=== PATIENT | male | born 1965 | race Caucasian/White ===

== ENCOUNTER → 2022-12-01 13:04 | Outpatient (CLI) | payer OTHER, SELFPAY ==
--- NOTE | 2022-12-01 | DI.MRI.S_ITS ---
PROCEDURE: MR PELIS WO/W CON INDICATIONS: Elevated prostate specific antigen [PSA] TECHNIQUE: Coronal HASTE, axial T1 FSE with fat saturation, 3-plane nonbreath-hold T2 FSE. After the administration of contrast, dynamic axial, delayed axial and coronal VIBE or 2-D FLASH with fat saturation through the pelvis. Optional diffusion weighted imaging and ADC may be performed. COMPARISON: None. FINDINGS: Image quality: Diffusion weighted and dynamic contrast enhanced images are diagnostic. Prostate: Gland size is 5.9 x 4.0 x 5.4 cm; ellipsoid gland volume is 66 mL. Mild hypertrophy of the transition zone diffusely with relatively good preservation of pseudo capsule and zonal architecture. Only a few discrete BPH nodules are identified. The T2 signal of the transition zone is diffusely heterogeneous. Lesion size(s): Lesion 1: About 1.2 cm in transverse diameter on diffusion imaging. Lesion 2: 0.7 cm in AP diameter on ADC map Lesion 3: 1.0 cm in AP diameter on T2 imaging There are few other areas of sub 5 mm moderate ADC hypointensity and mildly hyperintense on diffusion to the left and right of midline in the transition zone at the apex. Lesion location(s) (sector): Lesion 1: Right posterolateral peripheral zone near the gland apex. Lesion 2: Right anterior transition zone at apex to mid gland Lesion 3: Right lateral transition zone at the mid gland level Lesion description: Lesion 1: Amorphous, non circumscribed area, ill-defined on T2 imaging, best seen on diffusion imaging with mild T2 hypointensity. Lesion 2: Rounded, non circumscribed lesion of indistinct T2 hypointensity Lesion 3: Irregular non circumscribed lesion. T2 weighted imaging (T2WI) morphology score: Lesion 1: Three Lesion 2: Three Lesion 3: Three Diffusion weighted imaging (DWI) morphology score: Lesion 1: Three Lesion 2: Four Lesion 3: Four Dynamic contrast enhancement (DCE): Lesion 1: Absent Lesion 2: Present Lesion 3: Present Lesion PI-RADS score: Lesion 1: PI-RADS three Lesion 2: PI-RADS three Lesion 3: PI-RADS three Genitourinary system: Bladder wall thickness is normal. Distal ureters are non distended. Moderate size left hydrocele. Bowel and peritoneum: No pathologic free pelvic fluid. Inferior colon and small bowel loops are normal in caliber. Nodes and vessels: No pelvic or inguinal adenopathy by size criteria. Iliac vessels are normal in caliber. Soft tissues: No inguinal hernias. Bones: Marrow demonstrates normal overall signal, without lesions to suggest metastases. IMPRESSION: 1. Heterogeneous, mildly enlarged prostate gland with a few areas indeterminate for carcinoma. (PI-RADS three lesions) 2. No adenopathy or suspicious bone lesions. Dictated by: Claudia Washburn M.D. on 12/01/2022 at 16:32 Approved by: Claudia Washburn M.D. on 12/01/2022 at 17:00
== END ==
PROVIDERS: PCP Family Medicine; Referring Provider Urology; Visit Provider Urology
DX: R97.20 Elevated prostate specific antigen [PSA] (principal); N40.0 Benign prostatic hyperplasia without lower urinary tract symptoms; N42.9 Disorder of prostate, unspecified
CPT/HCPCS: 72197; A9579

== ENCOUNTER 2023-04-16 09:49 | Observation (INO) | payer OTHER, SELFPAY ==
[2023-04-16] VITALS (24 sets, daily range): BP systolic 116–152; BP diastolic 66–107; PULSE 40–58; RESP 11–23; TEMP 36.3–36.9; O2SAT 94–100; BMI 23.3
--- NOTE | 2023-04-16 09:56 | DI.RAD.S_ITS ---
PROCEDURE: XR CHEST 1V INDICATIONS: chest pain TECHNIQUE: One view of the chest was acquired. COMPARISON: None. FINDINGS: Surgical changes and devices: None. Lungs and pleura: Lungs are clear. No pleural effusions or pneumothorax. Mediastinum: Mediastinal contours appear normal. Heart size is normal. Bones and chest wall: No suspicious bony lesions. Overlying soft tissues appear unremarkable. IMPRESSION: No acute pulmonary process. Dictated by: Erica Singh M.D. on 04/16/2023 at 10:11 Approved by: Erica Singh M.D. on 04/16/2023 at 10:30
[2023-04-16 10:11] LABS: Add Manual Diff / Slide Review NO; Basophils Absolute Auto 0 /uL (0-100); Basophils Percent Auto 0.6 % (0-2); Eosinophils Absolute Auto 0 /uL (0-450); Eosinophils Percent Auto 0.9 % (2-4); Hematocrit 40.5 % (41-53); Hemoglobin 13.8 g/dL (13.5-17.5); Lymphocytes Absolute Auto 1000 /uL (1100-4500); Lymphocytes Percent Auto 18.8 % (25-40); Mean Corpuscular HGB Conc 34.2 % (30-36); Mean Corpuscular Hemoglobin 28.4 PG (26-34); Mean Corpuscular Volume 83.2 fL (80-100); Monocytes Absolute Auto 400 /uL (0-900); Monocytes Percent Auto 8.2 % (3-14); Neutrophils Absolute Auto 3900 /uL (1500-7000); Neutrophils Percent Auto 71.5 % (50-75); Platelet Count 221 X10^3/uL (150-400); Red Blood Cell Count 4.87 X10^6/uL (4.5-5.9); Red Cell Distribution Width 13.8 % (11.6-14.8); White Blood Cell Count 5.4 X10^3/uL (4.5-11.0)
[2023-04-16 10:14] LABS: INR 1.1 (0.9-1.3)
[2023-04-16] MEDS: ASPIRIN 81 MG CHEW TAB 324 MG PO (10:15)
[2023-04-16 10:17] LABS: PTT Partial Thromboplastin Tim 31 SECONDS (26-36)
[2023-04-16 10:20] LABS: Alanine Aminotransferase 19 IU/L (<50); Albumin 4.4 g/dL (3.5-5.0); Albumin Globulin Ratio 1.3 (1.0-2.8); Alkaline Phosphatase 61 U/L (38-126); Aspartate Aminotransferase 24 IU/L (17-59); BUN Creatinine Ratio 15.1 (6-22); Bilirubin Total 0.6 mg/dL (0.2-1.3); Blood Urea Nitrogen 13 mg/dL (9-20); Calcium 9.6 mg/dL (8.4-10.2); Carbon Dioxide 26 mmol/L (22-32); Chloride 101 mmol/L (98-107); Creatine Kinase 72 U/L (55-170); Estimated Glomerular Filt Rate > 60 mL/min (>60); Globulin 3.3 g/dL (1.7-4.1); Glucose 82 mg/dL (70-100); HEMOLYSIS < 15 (0-50); Lipase 79 U/L (23-300); Potassium 4.2 mmol/L (3.4-5.1); Sodium 132 mmol/L (137-145); Total Protein 7.7 g/dL (6.3-8.2)
[2023-04-16 10:31] LABS: Troponin I < 0.012 ng/mL (0.01-0.034)
--- NOTE | 2023-04-16 10:58 | ED.CHESTPAIN ---
HPI - Chest Pain General Chief Complaint: Chest Pain Stated Complaint: chest pain off and on T-30 Time Seen by Provider: 04/16/23 10:58 Source: patient Mode of arrival: Ambulatory Limitations: no limitations History of Present Illness HPI narrative: This is a 57-year-old male with history of hypertension on lisinopril 5 mg of vitamin D daily, patient comes in with complaint of chest pain that has been intermittent for the past month he states he was having left-sided chest pain was seen at [facility] in [place], was seen in the emergency department was set up to be scheduled for a stress test and echo but was unable to get this performed before he moved here locally. This is about 3 weeks ago. Patient states he was having similar episodes of chest discomfort that went away for about a week or 2 and have reoccurred last several days he describes it as left-sided radiates down his left arm, no shortness of breath, no diaphoresis no nausea or vomiting, no lightheadedness or passing out. He states it does not seem to be associated with exertion or any other factors. 2/10 at its maximum today had resolved and is starting to return. Patient states at his maximum he has been a 4 or 5 with any episode. He denies any swelling in his extremities. He would not been having issues before a month ago. Does relate a fair amount of stress recently. He states medically solely on lisinopril 5 mg and vitamin-D. Remote history of surgical repair of arm fracture in 1975 and prior eye surgery. Allergic to sulfa. No tobacco, has 6 alcoholic drinks weekly, no illicit. Deepti smith as his primary care. Family history patient states mom has hypertension but no known cardiac issues with parents or his brother. No prior stress testing or cardiac workup in the past. Related Data Previous Rx's Medication Instructions Recorded lisinopril 5 mg tablet 5 mg PO DAILY #90 tabs 04/06/23 Allergies Allergy/AdvReac Type Severity Reaction Status Date / Time Sulfa (Sulfonamide AdvReac Mild Verified 12/14/22 15:23 Antibiotics) Review of Systems Review of Systems ROS Unobtainable: All systems reviewed & are unremarkable except as noted in HPI and below Patient History Medical History Chicken pox (~1969) Colon polyps (~2017) Fractures (~1975) Hemorrhoid (~1989) History of elevated PSA (~2019) Melanoma (~2019) Osteopenia (~2004) Osteoporosis Rheumatoid arthritis (~2007) Surgical History Anesthesia History of surgery on arm (~1975) Family History Father Cancer Melanoma Mother Diabetes mellitus Hypertension Hyperlipidemia Grandfather Alcoholism Grandfather Cancer Grandmother Alzheimer's disease Social History household members: spouse Smoking Status: Never smoker alcohol intake: current Smoking Status: Never smoker alcohol intake frequency: 0-2 drinks per day Substance Use Type: does not use Exam Narrative Exam Narrative: GENERAL: Alert and oriented x three, thin male in mild distress. HEENT: Head normocephalic, atraumatic, EOMI, pupils reactive, face symmetric, moist mucous membranes NECK: Supple, full range of motion CARDIOVASCULAR: Regular rate and rhythm without murmurs, rubs or gallops. No JVD. No swelling bilateral lower extremities. No reproducible chest pain. No rash or skin changes. RESPIRATORY: Breath sounds equal bilaterally, no wheezes rales or rhonchi. No tachypnea or accessory muscle use. ABDOMEN: Soft, nontender. Normoactive bowel sounds all 4 quadrants. No guarding or rebound, rigidity, no mass : No CVA tenderness EXTREMITIES: Normal range of motion, no clubbing or edema. Neurovascularly intact NEUROLOGICAL: Cranial nerves II through XII grossly intact. Moving all extremities SKIN: Warm, dry, no petechiae, no rashes or lesions. Initial Vital Signs Initial Vital Signs: Vital Signs Temperature 98.5 F 04/16/23 09:50 Pulse Rate 52 L 04/16/23 09:50 Respiratory Rate 16 04/16/23 09:50 Blood Pressure 131/90 04/16/23 09:50 Pulse Oximetry 99 04/16/23 09:50 Oxygen Delivery Method Room Air 04/16/23 09:50 Scores HEART Score Heart Score history: Highly Suspicious Heart Score EKG: Normal Heart Score Age: 45-64 years old Heart Score risk factors: 1-2 risk factors Heart Score troponin: < or = to normal limit Heart Score Total: 4 Course Orders Ordered: Acetaminophen (Acetaminophen 325 Mg Tablet) 650 mg PO Q6H PRN PRN Reason: Fever/Mild Pain (1-3) Aspirin (Aspirin Ec 81 Mg Tablet) 81 mg PO DAILY [facility] Atorvastatin Calcium (Atorvastatin 20 Mg Tablet) 40 mg PO BEDTIME [facility] Last Admin: 04/16/23 20:48 Dose: Not Given Documented By: MS Naloxone HCl (Naloxone 0.4 Mg/Ml Vial) 0.2 mg IV Q2MIN PRN PRN Reason: Opiate Reversal Nitroglycerin (Nitroglycerin 0.4 Mg Sl Tab) 0.4 mg SL [id number] PRN PRN Reason: Chest Pain Last Admin: 04/16/23 11:36 Dose: 0.4 mg Documented By: AT Ondansetron HCl (Ondansetron 4 Mg Odt) 4 mg PO Q8HR PRN PRN Reason: Nausea And Vomiting Sodium Chloride (Sodium Chloride 0.9% Flush) 10 ml IV BID [facility] Last Admin: 04/17/23 04:15 Dose: 10 ml Documented By: MS Discontinued Medications Aspirin (Aspirin 81 Mg Chew Tab) 324 mg PO NOW ONE Stop: 04/16/23 09:57 Last Admin: 04/16/23 10:15 Dose: 324 mg Documented By: AT Vital Signs Vital signs: Vital Signs - 8 hr 04/16/23 09:50 04/16/23 09:55 04/16/23 10:00 Temperature 98.5 F Pulse Rate 52 L 58 L 54 L Respiratory Rate 16 18 20 Blood Pressure 131/90 Pulse Oximetry 99 100 100 Oxygen Delivery Method Room Air Room Air 04/16/23 10:01 04/16/23 10:01 04/16/23 10:30 Temperature Pulse Rate 54 L 50 L Respiratory Rate 17 12 Blood Pressure 141/82 H Pulse Oximetry 100 98 Oxygen Delivery Method 04/16/23 10:33 04/16/23 10:33 04/16/23 11:00 Temperature Pulse Rate 50 L 46 L Respiratory Rate 15 11 L Blood Pressure 129/87 Pulse Oximetry 98 98 Oxygen Delivery Method Room Air 04/16/23 11:30 04/16/23 11:30 04/16/23 11:40 Temperature Pulse Rate 48 L 54 L Respiratory Rate 14 12 Blood Pressure 148/88 H Pulse Oximetry 98 97 Oxygen Delivery Method Room Air 04/16/23 11:40 04/16/23 11:45 04/16/23 11:45 Temperature Pulse Rate 53 L Respiratory Rate 21 Blood Pressure 131/78 122/66 Pulse Oximetry 94 Oxygen Delivery Method 04/16/23 11:50 04/16/23 11:50 04/16/23 11:55 Temperature Pulse Rate 51 L 47 L Respiratory Rate 11 L 14 Blood Pressure 119/70 Pulse Oximetry 95 96 Oxygen Delivery Method 04/16/23 11:55 04/16/23 12:00 04/16/23 12:00 Temperature Pulse Rate 47 L Respiratory Rate 15 Blood Pressure 116/70 117/73 Pulse Oximetry 96 Oxygen Delivery Method Room Air 04/16/23 12:06 04/16/23 12:06 04/16/23 12:30 Temperature Pulse Rate 46 L Respiratory Rate 23 Blood Pressure 131/71 125/80 Pulse Oximetry 97 Oxygen Delivery Method 04/16/23 12:30 Temperature Pulse Rate 43 L Respiratory Rate 15 Blood Pressure Pulse Oximetry 100 Oxygen Delivery Method MDM - Chest Pain Lab Data 04/16/23 10:00 04/16/23 10:00 Labs: Lab Results 04/16/23 04/16/23 04/16/23 Range/Units 10:00 10:00 10:00 WBC 5.4 (4.5-11.0) X10^3/uL RBC 4.87 (4.5-5.9) X10^6/uL Hgb 13.8 (13.5-17.5) g/dL Hct 40.5 L (41-53) % MCV 83.2 (80-100) fL MCH 28.4 (26-34) PG MCHC 34.2 (30-36) % RDW 13.8 (11.6-14.8) % Plt Count 221 (150-400) X10^3/uL Neut % (Auto) 71.5 (50-75) % Lymph % (Auto) 18.8 L (25-40) % Bertie % (Auto) 8.2 (3-14) % Eos % (Auto) 0.9 L (2-4) % Baso % (Auto) 0.6 (0-2) % Neut # (Auto) 3900 (8098-7692) /uL Lymph # (Auto) 1000 L (8580-7331) /uL Bertie # (Auto) 400 (0-900) /uL Eos # (Auto) 0 (0-450) /uL Baso # (Auto) 0 (0-100) /uL PT 13.0 H (10.1-12.7) SECONDS INR 1.1 (0.9-1.3) APTT 31 (26-36) SECONDS D-Dimer (<500) ng/ml Sodium 132 L (137-145) mmol/L Potassium 4.2 (3.4-5.1) mmol/L Chloride 101 (98-107) mmol/L Carbon Dioxide 26 (22-32) mmol/L BUN 13 (9-20) mg/dL Creatinine 0.86 (0.66-1.25) mg/dL Estimated GFR > 60 (>60) mL/min BUN/Creatinine Ratio 15.1 (6-22) Glucose 82 (70-100) mg/dL Calcium 9.6 (8.4-10.2) mg/dL Magnesium 2.0 (1.6-2.3) mg/dL Total Bilirubin 0.6 (0.2-1.3) mg/dL AST 24 (17-59) IU/L ALT 19 (<50) IU/L Alkaline Phosphatase 61 (38-126) U/L Total Creatine Kinase 72 (55-170) U/L Troponin I < 0.012 (0.01-0.034) ng/mL Total Protein 7.7 (6.3-8.2) g/dL Albumin 4.4 (3.5-5.0) g/dL Globulin 3.3 (1.7-4.1) g/dL Albumin/Globulin Ratio 1.3 (1.0-2.8) Lipase 79 (23-300) U/L 04/16/23 04/16/23 Range/Units 10:00 12:05 WBC (4.5-11.0) X10^3/uL RBC (4.5-5.9) X10^6/uL Hgb (13.5-17.5) g/dL Hct (41-53) % MCV (80-100) fL MCH (26-34) PG MCHC (30-36) % RDW (11.6-14.8) % Plt Count (150-400) X10^3/uL Neut % (Auto) (50-75) % Lymph % (Auto) (25-40) % Bertie % (Auto) (3-14) % Eos % (Auto) (2-4) % Baso % (Auto) (0-2) % Neut # (Auto) (5964-3163) /uL Lymph # (Auto) (3484-6333) /uL Bertie # (Auto) (0-900) /uL Eos # (Auto) (0-450) /uL Baso # (Auto) (0-100) /uL PT (10.1-12.7) SECONDS INR (0.9-1.3) APTT (26-36) SECONDS D-Dimer 365 (<500) ng/ml Sodium (137-145) mmol/L Potassium (3.4-5.1) mmol/L Chloride (98-107) mmol/L Carbon Dioxide (22-32) mmol/L BUN (9-20) mg/dL Creatinine (0.66-1.25) mg/dL Estimated GFR (>60) mL/min BUN/Creatinine Ratio (6-22) Glucose (70-100) mg/dL Calcium (8.4-10.2) mg/dL Magnesium (1.6-2.3) mg/dL Total Bilirubin (0.2-1.3) mg/dL AST (17-59) IU/L ALT (<50) IU/L Alkaline Phosphatase (38-126) U/L Total Creatine Kinase (55-170) U/L Troponin I < 0.012 (0.01-0.034) ng/mL Total Protein (6.3-8.2) g/dL Albumin (3.5-5.0) g/dL Globulin (1.7-4.1) g/dL Albumin/Globulin Ratio (1.0-2.8) Lipase (23-300) U/L Imaging Data Chest x-ray: Radiologist's Impression: [address] [id number] ReportSigned Patient: Dmitri Cosme [facility]#: [id number]: 1965Acct:[id number]/Sex: 57 / MDate of Service: 04/16/23Loc: EDAccession Number: [id number] ?? Procedure: XR chest 1V Ordering Provider: Elisabeth Willoughby D.O. PROCEDURE:? XR CHEST 1V ? INDICATIONS:? chest pain ? TECHNIQUE:? One view of the chest was acquired.? ? COMPARISON:? None. ? FINDINGS:? ? Surgical changes and devices:? None.? ? Lungs and pleura:? Lungs are clear.? No pleural effusions or pneumothorax.? ? Mediastinum:? Mediastinal contours appear normal.? Heart size is normal.? ? Bones and chest wall:? No suspicious bony lesions.? Overlying soft tissues appear unremarkable.? ? IMPRESSION:? No acute pulmonary process. ? ? Dictated by: Erica Singh M.D. on 04/16/2023 at 10:11 ? ? Approved by: Erica Singh M.D. on 04/16/2023 at 10:30?? ECG Data Attestation: I personally reviewed and interpreted this ECG as follows: Interpretation: Sinus bradycardia with sinus arrhythmia, rate of 51 SD 172 QRS 86 and QTC 384. No acute ST elevation or depression appreciated. Sinus arrhythmia. No priors for comparison. EKG2. Sinus bradycardia, rate of 41 SD 172 QRS of 96 QTC 399. Patient's has slight change in V1 V2 but looks like probably some motion artifact. No other acute changes appreciated. MDM Narrative Medical decision making narrative: This is a 57-year-old male with history of hypertension, patient has had intermittent chest pain on and off for a month but had a period about 2 weeks without any symptoms. He does have a history of hypertension, he is not on any daily anticoagulation, initial workup with CBC, CMP, coags, LFTs and troponin is negative, chest x-ray shows no acute change. EKG does not show any clear changes patient is bradycardic with sinus arrhythmia but no ST changes noted no priors for comparison patient was seen in about a month ago was supposed to get stress testing but was unable to complete this. Patient's chest pain had recurred while in the department received aspirin, nitro Repeat troponin and EKG show no acute change. Dr. Vogel, hospitalist case was discussed he accepts for observation there is potential chance patient maybe able to get stress test today if not will be tomorrow. Discharge Plan Departure Patient Disposition: Admitted as Observation Clinical Impression: Chest pain Admit Date/Time: 04/16/23 13:26 Admit Provider: Arie Vogel
[2023-04-16] MEDS: NITROGLYCERIN 0.4 MG SL TAB SL (11:36)
[2023-04-16 12:13] LABS: D Dimer 365 ng/ml (<500)
[2023-04-16 12:32] LABS: Troponin I < 0.012 ng/mL (0.01-0.034)
--- NOTE | 2023-04-16 15:59 | PM.HP.1 ---
History of Present Illness History of Present Illness Date Patient Seen: 04/16/23 Time Patient Seen: 15:59 Chief complaint: chest pain off and on T-30 Narrative: This is a 57 year old male with PMH of HTN who presented to the ER today with an episode of chest pain. He states the pain has been going on intermittently over the past month. They're in the process of relocating from [place], and initially went to the ER there and had a reassuring evaluation so was recommended for outpatient stress testing, which did not get done. Chest pain is described as a moderate pressure, with radiation and numbness into his left arm. It is intermittent, not really associated with exertion or diet, and can happen at any time. He denies fever, diaphoresis, palpitation, orthopnea, or lower extremity edema. He has not noticed any noticeable drop in his exercise tolerance and can walk a few miles without notable dyspnea. No Fam Hx of CAD in mother or father. Non-smoker. 6 drinks per week. [facility] Medical History Chicken pox (~1970) Colon polyps (~2017) Fractures (~1975) Hemorrhoid (~1989) History of elevated PSA (~2019) Melanoma (~2019) Osteopenia (~2004) Osteoporosis Rheumatoid arthritis (~2007) Surgical History Anesthesia History of surgery on arm (~1975) Family History Father Cancer Melanoma Mother Diabetes mellitus Hypertension Hyperlipidemia Grandfather Alcoholism Grandfather Cancer Grandmother Alzheimer's disease Social History Smoking Status: Never smoker Meds Home Medications and Allergies Home Medications Medication Instructions Recorded Confirmed Type lisinopril 5 mg tablet 5 mg PO DAILY #90 tabs 04/06/23 04/16/23 Rx Allergies Allergy/AdvReac Type Severity Reaction Status Date / Time Sulfa (Sulfonamide AdvReac Mild Verified 12/14/22 15:23 Antibiotics) Review of Systems Review of Systems Narrative: All other systems reviewed with the patient and are negative unless otherwise stated. Exam Vital Signs (past 8 hours): - 04/16/23 09:50 04/16/23 09:55 04/16/23 10:00 Temperature 98.5 F Pulse Rate 52 L 58 L 54 L Respiratory Rate 16 18 20 Blood Pressure 131/90 Pulse Oximetry 99 100 100 Oxygen Delivery Method Room Air Room Air 04/16/23 10:01 04/16/23 10:01 04/16/23 10:30 Temperature Pulse Rate 54 L 50 L Respiratory Rate 17 12 Blood Pressure 141/82 H Pulse Oximetry 100 98 Oxygen Delivery Method 04/16/23 10:33 04/16/23 10:33 04/16/23 11:00 Temperature Pulse Rate 50 L 46 L Respiratory Rate 15 11 L Blood Pressure 129/87 Pulse Oximetry 98 98 Oxygen Delivery Method Room Air 04/16/23 11:30 04/16/23 11:30 04/16/23 11:40 Temperature Pulse Rate 48 L 54 L Respiratory Rate 14 12 Blood Pressure 148/88 H Pulse Oximetry 98 97 Oxygen Delivery Method Room Air 04/16/23 11:40 04/16/23 11:45 04/16/23 11:45 Temperature Pulse Rate 53 L Respiratory Rate 21 Blood Pressure 131/78 122/66 Pulse Oximetry 94 Oxygen Delivery Method 04/16/23 11:50 04/16/23 11:50 04/16/23 11:55 Temperature Pulse Rate 51 L 47 L Respiratory Rate 11 L 14 Blood Pressure 119/70 Pulse Oximetry 95 96 Oxygen Delivery Method 04/16/23 11:55 04/16/23 12:00 04/16/23 12:00 Temperature Pulse Rate 47 L Respiratory Rate 15 Blood Pressure 116/70 117/73 Pulse Oximetry 96 Oxygen Delivery Method Room Air 04/16/23 12:06 04/16/23 12:06 04/16/23 12:30 Temperature Pulse Rate 46 L Respiratory Rate 23 Blood Pressure 131/71 125/80 Pulse Oximetry 97 Oxygen Delivery Method 04/16/23 12:30 04/16/23 13:00 04/16/23 13:00 Temperature Pulse Rate 43 L 49 L Respiratory Rate 15 14 Blood Pressure 128/91 H Pulse Oximetry 100 99 Oxygen Delivery Method 04/16/23 13:30 04/16/23 13:31 04/16/23 13:31 Temperature Pulse Rate 47 L 46 L Respiratory Rate 17 12 Blood Pressure 145/83 H Pulse Oximetry 100 100 Oxygen Delivery Method 04/16/23 14:00 04/16/23 14:00 04/16/23 14:30 Temperature Pulse Rate 53 L Respiratory Rate 16 Blood Pressure 149/94 H 136/107 H Pulse Oximetry 100 Oxygen Delivery Method 04/16/23 14:30 04/16/23 15:00 04/16/23 15:00 Temperature Pulse Rate 48 L 47 L Respiratory Rate 22 14 Blood Pressure 134/78 Pulse Oximetry 100 99 Oxygen Delivery Method 04/16/23 15:30 04/16/23 15:30 Temperature Pulse Rate 47 L Respiratory Rate 20 Blood Pressure 152/85 H Pulse Oximetry 99 Oxygen Delivery Method Oxygen Delivery Method Room Air Narrative Exam Narrative: General:? Patient is well developed and well nourished, in no distress at this time. HEENT:? Normocephalic, atraumatic, extraocular muscles intact, oral pharynx is clear and mucous membranes are moist. Neck: supple and symmetric, trachea is midline, no cervical adenopathy. Negative for JVD Chest:? Normal AP diameter and contour without kyphoscoliosis, no tachypnea, equal chest rise bilaterally. Lungs:? CTA b/l no wheezing rhonchi or rales. Cardio:?RRR no m/r/g. Abdomen: S NT ND. No CVA tenderness. Musculoskeletal:? Muscle strength and tone are equal within normal limits, no deformity. Extremities: No edema or joint effusions. No cyanosis or clubbing. Skin:? Pale,? Warm to touch,dry and intact without rashes, ulcerations or petechiae.? Neuro:? Alert and orientated x3,? sensation to touch intact in all extremities, no gross deficits noted of cranial nerves. Psych:? Patient has a well-kept appearance, appropriate affect, mental status attitude thought context and judgment are appropriate for age. Objective ECG Impression: Sinus bradycardia without acute ischemia as interpreted by me Labs 04/16/23 10:00 04/16/23 10:00 Labs: Laboratory Results - last 24 hr 04/16/23 04/16/23 04/16/23 10:00 10:00 10:00 WBC 5.4 RBC 4.87 Hgb 13.8 Hct 40.5 L MCV 83.2 MCH 28.4 MCHC 34.2 RDW 13.8 Plt Count 221 Neut % (Auto) 71.5 Lymph % (Auto) 18.8 L [place] % (Auto) 8.2 Eos % (Auto) 0.9 L Baso % (Auto) 0.6 Neut # (Auto) 3900 Lymph # (Auto) 1000 L [place] # (Auto) 400 Eos # (Auto) 0 Baso # (Auto) 0 PT 13.0 H INR 1.1 APTT 31 D-Dimer Sodium 132 L Potassium 4.2 Chloride 101 Carbon Dioxide 26 BUN 13 Creatinine 0.86 Estimated GFR > 60 BUN/Creatinine Ratio 15.1 Glucose 82 Calcium 9.6 Magnesium 2.0 Total Bilirubin 0.6 AST 24 ALT 19 Alkaline Phosphatase 61 Total Creatine Kinase 72 Troponin I < 0.012 Total Protein 7.7 Albumin 4.4 Globulin 3.3 Albumin/Globulin Ratio 1.3 Lipase 79 04/16/23 04/16/23 10:00 12:05 WBC RBC Hgb Hct MCV MCH MCHC RDW Plt Count Neut % (Auto) Lymph % (Auto) [place] % (Auto) Eos % (Auto) Baso % (Auto) Neut # (Auto) Lymph # (Auto) [place] # (Auto) Eos # (Auto) Baso # (Auto) PT INR APTT D-Dimer 365 Sodium Potassium Chloride Carbon Dioxide BUN Creatinine Estimated GFR BUN/Creatinine Ratio Glucose Calcium Magnesium Total Bilirubin AST ALT Alkaline Phosphatase Total Creatine Kinase Troponin I < 0.012 Total Protein Albumin Globulin Albumin/Globulin Ratio Lipase Assessment & Plan Assessment & Plan narrative: 1. Chest pain - HEART score 4, intermediate risk for cardiac events. - continue telemetry, proceed with non-nuclear treadmill for further risk stratification tomorrow. - will order echocardiogram as well. - check 8 hr troponin, though low likelihood of ACS suspected given presentation. EKG is reassuring and CXR is unremarkable. 2. HTN - mildly elevated BPs on admission, continue home lisinopril and may need dose adjustment. 3. Asympatomatic hyponatremia - no further follow up needed at this time. I have utilized all available immediate resources to obtain, update, or review the patient's current medications. Code: Full, surrogate is patient's spouse Additional history was obtained via discussion with the ER provider. Discussed plan of care with patient and spouse at bedside. I have reviewed patient's EKG, imaging, lab evaluation and documentation personally with appropriate lab and risk stratification ordered as discussed above. Dispo: Admitted observation, if stress testing and echo is unremarkable can discharge home after.
--- NOTE | 2023-04-16 16:04 | DI.ECHO.S_ITS ---
[place] [facility]---------+ [facility] +---------+ : : [address] : : : : [id number] : : : : Phone: [phone]+ Echocardiogram Report + + :Name: MONSE PAPPAS Study Date: 04/17/2023 Height: 71 in : :[facility] ReadingLocation: Weight: 167 lb : : Gender: Male BSA: 2.0 m2 : :: 1965 Age: 57 yrs BP: 119/70 mmHg: :Reason For Study: CHEST PAIN : :Ordering Physician: KAE, : :LAYLA GUZMÁN Performed By: Mary Grace Brandt : :Referring: LAYLA PAL : + + Interpretation Summary The ejection fraction is estimated to be 55-60%. Diastolic parameters suggest probable normal left ventricular diastolic function and normal filling pressures. The right ventricle is normal in size and function. Injection of contrast documented a small interatrial shunt. There is mild mitral regurgitation. There is mild tricuspid regurgitation. The right ventricular systolic pressure is estimated to be at least 22 mmHg based on an estimated right atrial pressure of 3 mm Hg. Procedure: A two-dimensional transthoracic echocardiogram with color flow and Doppler was performed. The study quality was technically adequate. There is no prior echocardiogram noted for this patient. The patient was in sinus rhythm with heart rates between 42-75 bpm during the exam. Left Ventricle: The left ventricle is normal in size and wall thickness. The ejection fraction is estimated to be 55-60%. Diastolic parameters suggest probable normal left ventricular diastolic function and normal filling pressures. Right Ventricle: The right ventricle is normal in size and function. Atria: The left atrial size is normal. Right atrial size is normal. Injection of contrast documented an interatrial shunt. Mitral Valve: The mitral valve leaflets appear mildly thickened, but open well. There is mild mitral regurgitation. Aortic Valve: The aortic valve is trileaflet. The aortic valve opens well. There is no aortic valve stenosis. No aortic regurgitation is present. Tricuspid Valve: The tricuspid valve is normal. There is mild tricuspid regurgitation. The right ventricular systolic pressure is estimated to be at least 22 mmHg based on an estimated right atrial pressure of 3 mm Hg. Pulmonic Valve: The pulmonic valve is not well visualized. There is mild pulmonic regurgitation. Great Vessels: The aortic root is normal size. The dimensions of the ascending aorta are normal. The IVC is of normal diameter and collapses greater than 50% with a sniff. This suggests a low right atrial pressure of 3 mm Hg. Pericardium/ Pleura There is no pericardial effusion. There is no pleural effusion. MMode/2D Measurements & Calculations LVIDd: 5.4 cm LVOT diam: 2.2 cm LVIDs: 3.7 cm Ao root diam: 3.4 cm FS: 31.7 % asc Aorta Diam: 3.4 cm IVSd: 0.71 cm Ao Arch Diam (Prox Trans): 2.9 cm LVPWd: 0.77 cm LV juárez. diameter/BSA (cm/m^2): 2.8 LV sys. diameter/BSA (cm/m^2): 1.9 LA A2 area: 17.8 cm2 RA long axis: 5.5 cm LA A4 area: 13.7 cm2 RA area: 17.9 cm2 LA length (vol): 4.7 cm RA vol: 49.6 ml LA vol: 44.2 ml RA : 25.4 ml/m2 LA vol index: 22.6 ml/m2 IVC diam: 1.8 cm RVD1 (basal): 3.7 cm RVD2 (mid): 3.2 cm TAPSE: 2.2 cm Doppler Measurements & Calculations Ao V2 max: 125.3 cm/sec LVOT Max Chaz: 102.1 cm/sec Ao V2 mean: 81.3 cm/sec LV V1 max P.2 mmHg Ao max P.3 mmHg LV V1 VTI: 23.6 cm Ao mean P.0 mmHg GOLD(I,D): 3.1 cm2 Ao V2 VTI: 27.9 cm GOLD(V,D): 3.0 cm2 sev ratio: 0.85 GOLD indexed to BSA (cm^2/m^2): 1.6 MV E max chaz: 75.8 cm/sec TR max chaz: 219.4 cm/sec MV A max chaz: 46.2 cm/sec TR max P.2 mmHg MV E/A: 1.6 PA V2 max: 78.0 cm/sec Med Peak E' Chaz: 9.1 cm/sec PA V2 mean: 56.8 cm/sec E/E' med: 8.3 PA mean P.4 mmHg Lat Peak E' Chaz: 10.7 cm/sec PA pr(Accel): 10.5 mmHg E/E' lat: 7.1 E/e' average: 7.7 MV dec time: 0.24 sec SV(LVOT): 86.2 ml Reading Physician:11:33 AM
--- NOTE | 2023-04-16 16:12 | PC.NURSE ---
Pt arrived from ED at 1545. He is A&OX4. VSS, afebrile on RA. Sinus danya at 46, he states is normal HR for him. He denies dizziness, SOB, Chest pain upon arrival. MD at bedside evaluating patient. Plan for echo, NPO after midnight, no caffiene and treadmill stress test in a.m.
[2023-04-16 18:28] LABS: Cholesterol 242 mg/dL (140-199); HDL Cholesterol 62 mg/dL (40-60); LDL Cholesterol Calculated 163 mg/dL (<100); Triglycerides 85 mg/dL (35-150)
[2023-04-16 18:37] LABS: Troponin I < 0.012 ng/mL (0.01-0.034)
[2023-04-16 18:57] LABS: TSH w/ Reflex to FT4 0.95 uIU/mL (0.47-4.68)
[2023-04-17 01:33] VITALS: BP 122/77; PULSE 50; RESP 18; TEMP 36.5; O2SAT 98
[2023-04-17] MEDS: SODIUM CHLORIDE 0.9% FLUSH 10 ML IV ×2 (04:15→08:15)
[2023-04-17 05:00] VITALS: BP 119/70; PULSE 50; RESP 18; TEMP 36.5; O2SAT 98
[2023-04-17 07:00] VITALS: O2SAT 99
[2023-04-17 07:31] VITALS: BP 124/82; PULSE 50; RESP 18; TEMP 36.6; O2SAT 99
[2023-04-17] MEDS: ASPIRIN EC 81 MG TABLET PO (08:15)
--- NOTE | 2023-04-17 10:34 | CM.DANOTE ---
DCP: Chart review for case, met with patient at bedside, they agree to case management assessment. Completed DCP assessment based on information available. Patient is a 57 year old admitted for chest pain, stress test complete. PCP: Ashleigh Mendoza Payer: Dariusz Sommers DME: None DCP: Home with supportive who is currently at bedside Domenica Steven RN, CM Discharge Planning/Care Management CM Discharge Assessment Start: 04/17/23 10:32 Freq: Status: Active Protocol: Document 04/17/23 10:33 BQ (Rec: 04/17/23 10:34 BQ [id number]) Discharge Planning Assessment Assigned Toll Gate Keeper Domenica Steven RN, CM Advance Directives? No History Provided By Patient Has Patient been admitted in last 30 No days? Prior Living Arrangements House Household Members spouse Type of transporation used prior to Drives own vehicle admit Independent with ADL's Yes Is patient alert and oriented? Yes Barriers to Discharge No Discharge Plan Home Referrals Initiated None needed Whiteboard Updated in Patient Room with Yes name and ext. # of Toll Gate Keeper Review Status In Process Next Review Type Continued Stay Review
[2023-04-17 11:00] VITALS: BP 114/71; PULSE 65; RESP 18; TEMP 36.8; O2SAT 97; O2SAT 99
--- NOTE | 2023-04-17 14:04 | P.DS_ITS ---
History of Present Illness History of Present Illness Date Patient Seen: 04/17/23 Time Patient Seen: 14:04 Chief complaint: chest pain off and on T-30 Narrative: This is a 57 year old male with PMH of HTN who presented to the ER today with an episode of chest pain. He states the pain has been going on intermittently over the past month. They're in the process of relocating from [place], and initially went to the ER there and had a reassuring evaluation so was recommended for outpatient stress testing, which did not get done. Chest pain is described as a moderate pressure, with radiation and numbness into his left arm. It is intermittent, not really associated with exertion or diet, and can happen at any time. He denies fever, diaphoresis, palpitation, orthopnea, or lower extremity edema. He has not noticed any noticeable drop in his exercise tolerance and can walk a few miles without notable dyspnea. No Fam Hx of CAD in mother or father. Non-smoker. 6 drinks per week. Discharge Providers Provider Date of admission: 04/16/23 13:26 Discharge Date: 04/17/23 Primary care physician: Ashleigh Mendoza DO Discharge provider: Arie Vogel DO Summary Hospital Course Discharge Diagnosis: 1. Chest pain 2. HTN 3. Asympatomatic hyponatremia Hospital Course: This is a 57 year old male with a PMH of HTN admitted for further risk stratification for chest pain. He underwent echocardiogram which showed only mild valvular regurg, but no wall motion abnormalities and no systolic or diast olic dysfunction. His BP was initially elevated but improved on his home medications. Non-nuclear stress testing was deemed low risk, with no ST changes during peak exercise. He was discharged to follow up with primary care. His LDL was elevated, and ASCVD risk was calculated at 9.9%. He had previously been on statin, and would prefer to discuss statin medication with primary care provider in the near future and continue with lifestyle interventions at this time rather than statin administration. Time Spent with Patient Time spent: Less than 30 minutes Exam Vital Signs (past 8 hours): - 04/17/23 07:31 04/17/23 07:00 04/17/23 11:00 Temperature 97.8 F 98.3 F Pulse Rate 50 L 65 Respiratory Rate 18 18 Blood Pressure 124/82 114/71 Pulse Oximetry 99 99 97 Oxygen Delivery Method Room Air Oxygen Flow Rate 0 0 04/17/23 11:00 Temperature Pulse Rate Respiratory Rate Blood Pressure Pulse Oximetry 99 Oxygen Delivery Method Room Air Oxygen Flow Rate Oxygen Delivery Method Room Air Oxygen Flow Rate 0 Narrative Exam Narrative: General:? Patient is well developed and well nourished, in no distress at this time. Chest:? Normal AP diameter and contour without kyphoscoliosis, no tachypnea, equal chest rise bilaterally. Extremities: No edema or joint effusions. No cyanosis or clubbing. Skin:? Pale,? Warm to touch,dry and intact without rashes, ulcerations or petechiae.? Neuro:? Alert and orientated x3, no gross deficits noted of cranial nerves. Psych:? Patient has a well-kept appearance, appropriate affect, mental status attitude thought context and judgment are appropriate for age. Objective Labs 04/16/23 10:00 04/16/23 10:00 Labs: Laboratory Results - last 24 hr 04/16/23 04/16/23 04/16/23 17:57 17:57 17:57 Troponin I < 0.012 Triglycerides 85 Cholesterol 242 H LDL Cholesterol, Calc 163 H HDL Cholesterol 62 H TSH 0.95 PFSH Medical History Chicken pox (~1970) Colon polyps (~2018) Fractures (~1975) Hemorrhoid (~1989) History of elevated PSA (~2019) Melanoma (~2019) Osteopenia (~2005) Osteoporosis Rheumatoid arthritis (~2007) Surgical History Anesthesia History of surgery on arm (~1975) Family History Father Cancer Melanoma Mother Diabetes mellitus Hypertension Hyperlipidemia Grandfather Alcoholism Grandfather Cancer Grandmother Alzheimer's disease Social History household members: spouse Smoking Status: Never smoker alcohol intake: current Discharge Plan Discharge Plan Patient Disposition: Home Provider Discharge Comment: You were admitted to the hospital with chest pain. Echocardiogram and stress testing were reassuring. No medication changes are recommended at this time. Consider further discussion with PCP regarding heart attack and stroke risk reduction with statin therapy, one option may be to persue coronary artery calcium scoring. Discharge orders & Medications Prescriptions: Continued lisinopril 5 mg tablet 5 mg PO DAILY Qty: 90 0RF Follow up/Referrals: Ashleigh Mendoza DO [Primary Care Provider] - Diet/Activity/Treatments Diet: Diet as Tolerated and Regular Activity: As tolerated, no restrictions. Visit Report/Discharge Packet Stand Alone Forms: Patient Portal/API, Stroke Signs & Symptoms Discharge Data Primary Care Provider: Ashleigh Mendoza Attending Provider: Arie Vogel Admit Date/Time: 04/16/23 13:26 Discharges patient from system. Discharge Date/Time: 04/17/23 14:25 Quality VTE Deep Vein Thrombosis/Pulmonary Embolism Present on Admission: No
--- NOTE | 2023-04-17 14:27 | PC.NURSE ---
Pt is A&Ox4, VSS, afebrile on RA. HR 40's-60's. He has Echo completed at bedside this a.m. He is able to eat breakfast and go to treadmill stress test. He has not had caffeine in 24 hours. He denies feeling palpitations, SOB, CARBALLO, dizziness or chest pain this shift. He is cleared for discharge this afternoon after results of stress test are reviewed with hospitalist. He verbalizes understanding of medication review, recommendations and to follow up with PCP within a week. He is escorted with all of his belongings to entrance with to discharge home in a private vehicle..
[2023-04-18 05:30] LABS: x Labcorp Estim. Avg Glu (eAG) 120 mg/dL (.); x Labcorp Hemoglobin A1c 5.8 % (4.8-5.6)
--- NOTE | 2023-04-26 11:47 | DI.NM.S_ITS ---
DATE OF SERVICE: EXERCISE STRESS TEST: INDICATIONS: Chest pain. CARDIAC STRESS: The patient walked on Ozzy protocol under the supervision of an attending staff. He walked on Ozzy protocol for 10 minutes and 33 seconds, achieved maximum heart rate of 160, which was 99% of target heart rate. 12.8 METs of workload. IASHA -14%. Baseline blood pressure 90/60 and maximum blood pressure 134/70, which decreased to 120/66 mmHg. Baseline rhythm was sinus with isolated PVCs. During early recovery, the patient has frequent PVCs as well as isolated PACs which got suppressed during peak exercise and reappeared in recovery. In recovery, occasional ventricular couplets were seen as well. No ventricular tachycardia or Afib or SVT. No chest pain or anginal symptoms. The patient felt like fatigue and shortness of breath. CONCLUSION: Exercise stress test is negative for inducible ischemia. Good exercise tolerance. AISHA -14%. 12.8 METs of workload. Total exercise time on Ozzy protocol 10 minutes and 33 seconds. Baseline intermittent premature ventricular contractions, which got worse during early part of exercise, but suppressed during peak exercise, as well as intermittent premature atrial contractions, with reappearance in recovery. Occasional ventricular couplets without any ventricular tachycardia or atrial fibrillation or supraventricular tachycardia. No anginal symptoms. Correlate clinically. Overall, low-risk exercise stress test. Dmitri oCsme - Stefan doc#: [id number]/job#: [id number] dd: 04/17/2023 13:01:00 dt: 04/17/2023 14:00:00 DICTATING /COPIES TO: Khushbu Ayers MD COPIES MNE: LUCAS;
== END 2023-04-17 14:25 | disposition home or self-care (01) ==
LOC: ED 12:38 → AC 13:26
PROVIDERS: Admitting Provider Internal Medicine; Emergency Provider Emergency Medicine; PCP Family Medicine; Referring Provider Emergency Medicine; Visit Provider Internal Medicine
DX: R07.9 Chest pain, unspecified (principal); M06.9 Rheumatoid arthritis, unspecified
CPT/HCPCS: 36415; 71045; 80053; 80061; 82550; 83036; 83690; 83735; 84443; 84484; 85025; 85379; 85610; 85730; 93005; 93017; 93306; 99284; G0378

== ENCOUNTER → 2023-06-13 07:15 | Outpatient (CLI) | payer OTHER, SELFPAY ==
[2023-04-16 15:50] VITALS: BMI 23.3
[2023-06-13 09:34] LABS: Creatinine Urine Random 132.1 mg/dL; Protein (Total) Urine Random 9 mg/dL (0-12); Protein Creatinine Ratio Urine 0.06 GRAM/24H
[2023-06-13 09:47] LABS: Alanine Aminotransferase 19 IU/L (<50); Albumin 4.3 g/dL (3.5-5.0); Albumin Globulin Ratio 1.5 (1.0-2.8); Alkaline Phosphatase 57 U/L (38-126); Aspartate Aminotransferase 28 IU/L (17-59); BUN Creatinine Ratio 11.8 (6-22); Bilirubin Total 0.7 mg/dL (0.2-1.3); Blood Urea Nitrogen 9 mg/dL (9-20); Calcium 9.4 mg/dL (8.4-10.2); Carbon Dioxide 28 mmol/L (22-32); Chloride 99 mmol/L (98-107); Cholesterol 287 mg/dL (140-199); Estimated Glomerular Filt Rate > 60 mL/min (>60); Globulin 2.9 g/dL (1.7-4.1); Glucose 91 mg/dL (70-100); HDL Cholesterol 72 mg/dL (40-60); HEMOLYSIS < 15 (0-50); LDL Cholesterol Calculated 193 mg/dL (<100); Potassium 4.5 mmol/L (3.4-5.1); Sodium 134 mmol/L (137-145); Total Protein 7.2 g/dL (6.3-8.2); Triglycerides 108 mg/dL (35-150)
== END ==
PROVIDERS: PCP Family Medicine; Referring Provider Family Medicine; Visit Provider Family Medicine
DX: E78.5 Hyperlipidemia, unspecified (principal)
CPT/HCPCS: 36415; 80053; 80061; 82570; 84156

== ENCOUNTER → 2023-12-12 07:26 | Outpatient (CLI) | payer OTHER, SELFPAY ==
[2023-04-16 15:50] VITALS: BMI 23.3
[2023-12-12 08:11] LABS: Hematocrit 41.3 % (41-53); Mean Corpuscular HGB Conc 33.8 % (30-36); Mean Corpuscular Hemoglobin 28.9 PG (26-34); Mean Corpuscular Volume 85.5 fL (80-100); Platelet Count 226 X10^3/uL (150-400); Red Blood Cell Count 4.83 X10^6/uL (4.5-5.9); Red Cell Distribution Width 14.4 % (11.6-14.8); White Blood Cell Count 5.6 X10^3/uL (4.5-11.0)
[2023-12-12 08:16] LABS: Hemoglobin A1C% w Est Avg Glu 5.5 % (4.0-6.0)
[2023-12-12 08:27] LABS: BUN Creatinine Ratio 20.2 (6-22); Blood Urea Nitrogen 17 mg/dL (9-20); Calcium 9.6 mg/dL (8.4-10.2); Carbon Dioxide 29 mmol/L (22-32); Chloride 104 mmol/L (98-107); Estimated Glomerular Filt Rate > 60 mL/min (>60); Glucose 93 mg/dL (70-100); HEMOLYSIS < 15 (0-50); Potassium 4.5 mmol/L (3.4-5.1); Sodium 137 mmol/L (137-145)
[2023-12-12 08:31] LABS: High Sensitivity CRP - Cardiac 0.7 mg/L (1.0-3.0)
[2023-12-14 07:46] LABS: Cholesterol, Total 273 mg/dL (100-199); HDL-Cholesterol 67 mg/dL (>39); HDL-Particle (Total) 34.4 umol/L (>=30.5); LDL Particle 1766 nmol/L (<1000); LDL-Cholsterol 189 mg/dL (0-99); LP-IR Score 27 (<=45); Small LDL- Particle 201 nmol/L (<=527); Triglycerides 100 mg/dL (0-149)
== END ==
PROVIDERS: PCP Family Medicine; Referring Provider Family Medicine; Visit Provider Family Medicine
DX: I10 Essential (primary) hypertension (principal); E78.5 Hyperlipidemia, unspecified; R73.03 Prediabetes; D64.9 Anemia, unspecified; R07.9 Chest pain, unspecified
CPT/HCPCS: 36415; 80048; 80061; 83036; 83704; 85027; 86140

== ENCOUNTER → 2024-01-26 15:17 | Outpatient (CLI) | payer OTHER, SELFPAY ==
[2023-04-16 15:50] VITALS: BMI 23.3
--- NOTE | 2024-01-26 16:39 | DI.MRI.S_ITS ---
PROCEDURE: MR PELIS WO/W CON INDICATIONS: Elevated prostate specific antigen [PSA] TECHNIQUE: Coronal HASTE, axial T1 FSE with fat saturation, 3-plane nonbreath-hold T2 FSE. After the administration of contrast, dynamic axial, delayed axial and coronal VIBE or 2-D FLASH with fat saturation through the pelvis. Diffusion weighted imaging and ADC was performed. 20 cc ProHance IV contrast. COMPARISON: [facility], MR, MR PELVIS WO/W CON, 12/01/2022, 13:28. FINDINGS: Image quality: Diffusion weighted and dynamic contrast enhanced images are diagnostic. Prostate: Gland size is 5.8 x 5.4 x 4.4 cm; ellipsoid gland volume is 52 mL. No significant foci of intrinsic T1 hyperintensity to suggest hemorrhage. Multiple BPH nodules Lesion 1: Location: Right apex peripheral zone, (4/18). Wedge-shaped. Size: 0.8 cm. T2W signal: Heterogeneous DWI signal: Mildly hyperintense. ADC signal: Heterogeneous Enhancement: Absent Extracapsular extension: No. No neurovascular involvement. PI-RADS score: 2 Lesion 2: Location: Right mid gland/base transitional zone, (4/12) Size: 0.6 cm. T2W signal: Isointense. 3 DWI signal: Heterogeneous ADC signal: Heterogeneous Enhancement: Absent Extracapsular extension: No. No neurovascular involvement. PI-RADS score: 3 Lesion 3: Location: Right mid gland transitional zone, (4/12) Size: 0.8 cm. T2W signal: Hypointense. 2 DWI signal: Heterogeneous ADC signal: Heterogeneous Enhancement: Absent Extracapsular extension: No. No neurovascular involvement. PI-RADS score: 2 Lesion 4: Location: Right apex transitional zone, (4/15) Size: 1.1 x 1 cm. T2W signal: Heterogeneous. 3 DWI signal: Heterogeneous ADC signal: Hypointense Enhancement: Absent Extracapsular extension: No. No neurovascular involvement. PI-RADS score: No PI-RADS 4 or 5 observations. Genitourinary system: Bladder wall thickness is normal. Distal ureters are non distended. Bowel and peritoneum: No pathologic free pelvic fluid. Inferior colon and small bowel loops are normal in caliber. Nodes and vessels: No pelvic or inguinal adenopathy by size criteria. Iliac vessels are normal in caliber. Soft tissues: No inguinal hernias. Left hydrocele. Bones: Marrow demonstrates normal overall signal, without lesions to suggest metastases. IMPRESSION: 1. Prostatomegaly. Multiple BPH nodules. 2. No PI-RADS 4 or 5 observations. 3. Previously described lesions are overall similar in size. A few PI-RADS 3 observations noted. 4. No enlarged lymph nodes. Dictated by: Galo Linares M.D. on 01/28/2024 at 9:04 Approved by: Galo Linares M.D. on 01/28/2024 at 9:44
== END ==
LOC: MRI 15:17
PROVIDERS: PCP Family Medicine; Referring Provider Urology; Visit Provider Urology
DX: N40.2 Nodular prostate without lower urinary tract symptoms (principal); N42.9 Disorder of prostate, unspecified; R97.20 Elevated prostate specific antigen [PSA]
CPT/HCPCS: 72197; A9579

== ENCOUNTER → 2025-02-10 07:29 | Outpatient (CLI) | payer OTHER, SELFPAY ==
[2023-04-16 15:50] VITALS: BMI 23.3
--- NOTE | 2025-02-10 | DI.MRI.S_ITS ---
PROCEDURE: MR PELVIC PROSTATE PROTOCOL INDICATIONS: ELEV PSA TECHNIQUE: Coronal HASTE, axial T1 FSE with fat saturation, 3-plane nonbreath-hold T2 FSE. After the administration of contrast, dynamic axial, delayed axial and coronal VIBE or 2-D FLASH with fat saturation through the pelvis. Diffusion weighted imaging and ADC was performed. 20 cc ProHance IV contrast. COMPARISON: [facility], MR, MR PELVIS WO/W CON, 01/26/2024, 15:45. [facility], MR, MR PELVIS WO/W CON, 12/01/2022, 13:28. FINDINGS: Image quality: Diffusion weighted and dynamic contrast enhanced images are diagnostic. Mild artifact on the T2 axial images small [id number] Prostate: Gland size is 5.7 x 5.1 x 4.4 cm; ellipsoid gland volume is 67 mL. Numerous BPH nodules. No significant intrinsic T1 hyperintense foci to suggest hemorrhage. No significant areas of ADC hypointensity in the peripheral zone. No suspicious foci of the T2 hypointense signal in the transitional zone. No PI-RADS 4 or 5 observations. Genitourinary system: Bladder wall thickness is normal. Distal ureters are non distended. Bowel and peritoneum: No pathologic free pelvic fluid. Inferior colon and small bowel loops are normal in caliber. Diverticulosis. Nodes and vessels: No pelvic or inguinal adenopathy by size criteria. Iliac vessels are normal in caliber. Soft tissues: No inguinal hernias. Bones: Marrow demonstrates normal overall signal, without lesions to suggest metastases. IMPRESSION: 1. Prostatomegaly with multiple BPH nodules. 2. No PI-RADS 4 or 5 observations. No interval change appreciated. 3. No enlarged lymph nodes. Transrectal ultrasound-guided biopsy could be considered for further evaluation. Pylarify PET/CT could also be considered if there is a high suspicion for occult clinically significant prostate cancer. Dictated by: Galo Linares M.D. on 02/10/2025 at 16:35 Approved by: Galo Linares M.D. on 02/10/2025 at 16:50
== END ==
PROVIDERS: PCP Family Medicine; Referring Provider Urology; Visit Provider Urology
DX: N40.2 Nodular prostate without lower urinary tract symptoms (principal); R97.20 Elevated prostate specific antigen [PSA]; K57.90 Diverticulosis of intestine, part unspecified, without perforation or abscess without bleeding
CPT/HCPCS: 72197; A9579